=== PATIENT | male | born 2005 | race Caucasian/White ===

== ENCOUNTER 2023-03-18 15:32 | Emergency (ER) | payer MEDICAID, SELFPAY ==
[2023-03-18 15:34] VITALS: BP 164/114; PULSE 120; RESP 18; TEMP 36.1; O2SAT 96; BMI 40.6
--- NOTE | 2023-03-18 15:47 | EX.ED.DYSGE1 ---
HPI History of Present Illness Chief Complaint: General Illness Detail of Chief Complaint: Chest wall pain Informant: patient Onset/Context/Timing Onset: Days (10 days) Narrative Narrative: Patient presents secondary to pain around his left nipple. He states it is been bothering her for the past 10 days and is only sore with palpation or lying on his chest. He is concerned that he may have cancer. He denies family history of cancer. He has not had night sweats or unintended weight loss. There has been no redness or drainage from the area. PFSH PFSH Medical History no medical history no medical history Allergy/AdvReac Type Severity Reaction Status Date / Time No Known Allergies Allergy Verified 03/18/23 15:36 Social History Smoking Status: Current every day smoker tobacco type: e-cigarettes ROS ROS ED Constitutional Constitutional ED: Denies chills or fever(s) Eyes Eyes: Denies change in vision or discharge from eye(s) ENT ENT ED: Denies discharge from eye(s), rhinorrhea or sore throat Cardiovascular Cardiovascular: Reports chest pain; Denies palpitations Respiratory/Chest Respiratory/Chest: Denies cough or dyspnea Gastrointestinal Gastrointestinal: Denies abdominal pain, nausea or vomiting Musculoskeletal Musculoskeletal: Denies back pain or extremity pain Integumentary Denies Abrasions or rash Neurologic Neurologic: Denies headache(s) or weakness Psychiatric Psychiatric: Denies anxiety or depression Allergic/Immunologic Allergic/Immunologic ED: Denies lip swelling or urticaria EXAM Physical Exam Const Vital Signs: 03/18/23 15:34 03/18/23 15:49 Temperature 97 F L Temperature Source Temporal Pulse Rate 120 H Respiratory Rate 18 Respiratory Effort Normal Non-Labored Blood Pressure 164/114 H Blood Pressure Mean 130 Pulse Ox 96 Oxygen Delivery Method Room Air Positive well nourished and well developed General Appearance ED: well developed HEENT Reports normocephalic and head/scalp atraumatic Eyes PERRL and EOMs intact bilaterally Neck supple Chest Wall inspection of chest normal and palpation of chest normal Chest Narrative: No reproducible chest wall pain at this time. No erythema or palpable masses. Resp normal respiratory effort and clear to auscultation bilaterally Cardio regular rate and regular rhythm GI normal to inspection, nondistended, normoactive bowel sounds Palpation: soft Extremity normal to inspection Neuro oriented x3 and no sensory deficits noted Sensorium / Orientation: alert Motor Exam: strength 5/5 throughout Psych mental status grossly normal Skin no rashes or lesions noted MDM MDM MDM Narrative Medical decision making narrative: I discussed with the patient that I am not able to rule out cancer in the emergency room. I am able to perform a chest x-ray which will be obtained to evaluate for any obvious mass or bony abnormality to the area. I advised him that he will need follow-up with a primary care physician for possible ultrasound or mammogram of the area if concern remains. He voices understanding and agreement. Treatment and Re-Evaluation :: 2 view chest x-ray per my interpretation is unremarkable. It is noted that on the lateral view the anterior soft tissue of the chest wall is not included on the image. I do not see any obvious masses on the PA image. Test results are discussed with the patient. I will refer him to Dr. Bayron Mayer, next doc on the no doc list for follow-up and to establish care. Patient states that if the x-ray looks okay he may not follow-up. I did explain to him multiple times that a normal-appearing x-ray does not rule out cancer and I cannot tell him at this time that he does not have cancer. He voices understanding and agreement. He will be discharged home with follow-up instructions. Discharge Plan Triage Chief Complaint: General Illness ED Provider: Stephanie Ott Dx/Rx/DC Orders Clinical Impression: Chest wall pain Instructions: ED Pain, Acute, Uncertain Cause Primary Care Provider: Care Physician,No Primary Referrals: Bayron Mayer MD [Med Staff - [facility]] - 1-2 Weeks Care Physician,No Primary [Primary Care Provider] - Disposition Disposition: Home, Self Care
--- NOTE | 2023-03-18 15:54 | RAD_ITS ---
STUDY: X-RAY CHEST REASON FOR EXAM: Male, 17 years old. Chest wall pain. TECHNIQUE: PA and lateral views of the chest. COMPARISON: None. FINDINGS: The lungs are clear and expanded. There is no demonstrated pleural abnormality. Normal size heart. Normal mediastinum and bipin. Normal visualized pulmonary arteries. Normal visualized aortic arch and descending thoracic aorta. Normal visualized thoracic spine. Normal visualized ribs, clavicles, and shoulders. There is no demonstrated abnormality of the visualized soft tissue structures of the upper abdomen. RAD/Chest PA and Lateral IMPRESSION: No acute cardiopulmonary disease. Electronically Signed: Bernabe Alexandre DO at 16:12 EDT ,
== END 2023-03-18 16:27 | disposition home or self-care (01) ==
PROVIDERS: Emergency Provider Emergency Medicine; Visit Provider Emergency Medicine
DX: R07.89 Other chest pain (principal); F17.290 Nicotine dependence, other tobacco product, uncomplicated
CPT/HCPCS: 71046; 99282

== ENCOUNTER 2023-05-03 20:51 | Emergency (ER) | payer MEDICAID, SELFPAY ==
[2023-05-03 20:53] VITALS: BP 165/90; PULSE 94; RESP 18; TEMP 36.3; O2SAT 94; BMI 46.0
--- NOTE | 2023-05-03 21:11 | EX.ED.DYSGE1 ---
HPI History of Present Illness Chief Complaint: General Illness Informant: patient Onset/Context/Timing Onset: Month(s) Narrative Narrative: Patient presents because his stool has been yellow in color and liquidy for the last month. He states he will occasionally get soreness in his lower abdomen. He has had no vomiting. Significant other states they just found out that he has insurance and they did not want a wait for a doctor's appointment so they came to the emergency room. Patient states he did start taking some vitamin Gummies and probiotics shortly after his symptoms started. He did not notice any change while taking these. He did stop the vitamin Gummies but is still taking the probiotic. PFSH PFSH Medical History no medical history no medical history Allergy/AdvReac Type Severity Reaction Status Date / Time No Known Allergies Allergy Verified 05/03/23 20:56 Social History Smoking Status: Current every day smoker tobacco type: e-cigarettes ROS ROS ED Constitutional Constitutional ED: Denies chills or fever(s) Eyes Eyes: Denies change in vision or discharge from eye(s) ENT ENT ED: Denies discharge from eye(s), rhinorrhea or sore throat Cardiovascular Cardiovascular: Denies chest pain or palpitations Respiratory/Chest Respiratory/Chest: Denies cough or dyspnea Gastrointestinal Gastrointestinal: Reports diarrhea; Denies abdominal pain, nausea or vomiting Genitourinary Genitourinary ED: Denies dysuria Musculoskeletal Musculoskeletal: Denies back pain or extremity pain Integumentary Denies Abrasions or rash Neurologic Neurologic: Denies headache(s) or weakness Psychiatric Psychiatric: Denies anxiety or depression Allergic/Immunologic Allergic/Immunologic ED: Denies lip swelling or urticaria EXAM Physical Exam Const Vital Signs: 05/03/23 20:53 Temperature 97.3 F L Temperature Source Temporal Pulse Rate 94 Respiratory Rate 18 Blood Pressure 165/90 H Blood Pressure Mean 115 Pulse Ox 94 Oxygen Delivery Method Room Air Positive well nourished and well developed General Appearance ED: well developed HEENT Reports normocephalic and head/scalp atraumatic Eyes PERRL and EOMs intact bilaterally Neck supple Chest Wall inspection of chest normal and palpation of chest normal Resp normal respiratory effort and clear to auscultation bilaterally Cardio regular rate and regular rhythm GI normal to inspection, nondistended, normoactive bowel sounds Palpation: soft Extremity normal to inspection Neuro oriented x3 and no sensory deficits noted Sensorium / Orientation: alert Motor Exam: strength 5/5 throughout Psych mental status grossly normal Skin no rashes or lesions noted MDM MDM MDM Narrative Medical decision making narrative: Labwork obtained to evaluate for leukocytosis, anemia, and electrolyte derangement. Stool studies sent. Lab Data Attestation: I reviewed the patient's lab results. Labs: Laboratory Results - last 24 hr 05/03/23 21:20 WBC 7.4 RBC 5.73 Hgb 16.7 H Hct 49.7 MCV 86.7 MCH 29.1 MCHC 33.6 RDW Std Deviation 39.5 RDW Coeff of Jaelyn 12.6 Plt Count 221 MPV 10.6 Immature Gran % (Auto) 0.400 Neut % (Auto) 57.6 Lymph % (Auto) 32.7 [place] % (Auto) 7.5 Eos % (Auto) 1.5 Baso % (Auto) 0.3 Absolute Neuts (auto) 4.3 Absolute Lymphs (auto) 2.43 Nucleated RBC % 0 Sodium 139 Potassium 3.9 Chloride 104 Carbon Dioxide 25.0 Anion Gap 10 BUN 14 Creatinine 0.89 Estim Creat Clear Calc 146.53 Est GFR (MDRD) Af Amer 141 Est GFR (MDRD) Non-Af 116 BUN/Creatinine Ratio 15.8 Glucose 107 H Calcium 9.8 Total Bilirubin 0.70 Direct Bilirubin 0.23 AST 26 ALT 59 Alkaline Phosphatase 80 Total Protein 8.3 H Albumin 4.1 Globulin 4.2 Lipase 15 Treatment and Re-Evaluation :: CBC and chemistry studies are remarkable only for hemoconcentration with a hemoglobin of 16.7. Renal function is normal. LFTs and lipase are normal. Stool has been sent, but we several hours for results. He was advised that if any of his results are positive and he needs treatment he will be called. I encouraged him to check with his insurance company to see what doctors in the area except his insurance. He will be given a pamphlet with the area providers in it. Return instructions given. Discharge Plan Triage Chief Complaint: General Illness ED Provider: Stephanie Ott Dx/Rx/DC Orders Clinical Impression: Diarrhea Instructions: ED Diarrhea, Unknown Cause Primary Care Provider: Care Physician,No Primary Referrals: Care Physician,No Primary [Primary Care Provider] - Activity Restrictions/Additional Instructions: As discussed, please call your insurance company to see who in the area accepts your insurance. You have been given a pamphlet with the area providers and their contact information. Disposition Disposition: Home, Self Care
[2023-05-03 21:26] LABS: Absolute Lymphocyte Count 2.43 X10^3/uL (0.83-4.51); Absolute Neutrophil Count 4.3 X10^3/uL (2.0-7.7); Basophil# 0.02 X10^3/uL; Basophil% 0.3 % (0-1); Eosinophil# 0.11 X10^3/uL; Eosinophils% 1.5 % (0-5); Hematocrit 49.7 % (40-54); Hemoglobin 16.7 g/dL (13.0-16.5); Lymphocyte # 2.43 X10^3/ul (0.83-4.51); Lymphocyte % 32.7 % (19-41); Mean Corp Hgb Conc 33.6 g/dL (32-36); Mean Corpuscular Hgb 29.1 pg (27.0-32.0); Mean Corpuscular Volume 86.7 fL (80-94); Mean Platelet Vol. 10.6 fl (6.2-12.0); Monocyte# 0.56 X10^3/uL; Monocyte% 7.5 % (0-10); NRBC Flagged by Analyzer 0 % (0-5); Neutrophil # 4.29 X10^3/uL (2.7-7.7); Neutrophil % 57.6 % (47-70); Platelet Count 221 K/mm3 (150-450); RBC Distribution Width CV 12.6 % (11.6-14.6); RBC Distribution Width SD 39.5 fl (35.1-43.9); Red Blood Count 5.73 M/mm3 (4.6-6.2); White Blood Count 7.4 K/mm3 (4.4-11.0)
[2023-05-03 21:45] LABS: AST(SGOT) 26 U/L (15-37); Alanine Aminotransfer ALT/SGPT 59 U/L (16-61); Albumin, Serum 4.1 g/dL (3.2-5.0); Alkaline Phosphatase 80 U/L (45-117); Anion Gap 10 (5-15); BUN 14 mg/dL (7-18); BUN/Creat Ratio 15.8 RATIO (10-20); Bilirubin, Direct 0.23 mg/dL (0.00-0.30); Calcium,Total 9.8 mg/dL (8.5-10.1); Chloride 104 mmol/L (98-107); Creatinine, Serum 0.89 mg/dL (0.70-1.30); EST Glomerular Filtration Rate 116 mL/min (>60); Est Glom Filt Rate - Afr Amer 141 mL/min (>60); Estimated Creatinine Clearance 146.53 ml/min; Globulin 4.2 g/dL (2.2-4.2); Glucose 107 mg/dL (74-106); Lipase 15 U/L (13-75); Potassium 3.9 mmol/L (3.5-5.1); Protein, Total 8.3 g/dL (6.4-8.2); Sodium Level 139 mmol/L (136-145)
== END 2023-05-03 22:51 | disposition home or self-care (01) ==
PROVIDERS: Emergency Provider Emergency Medicine; Visit Provider Emergency Medicine
DX: R19.7 Diarrhea, unspecified (principal); F17.290 Nicotine dependence, other tobacco product, uncomplicated
CPT/HCPCS: 83630; 87506; 80048; 80076; 83690; 85025; 99283

== ENCOUNTER 2023-08-21 14:26 | Emergency (ER) | payer MEDICAID, SELFPAY ==
[2023-08-21 14:28] VITALS: BP 165/109; PULSE 119; RESP 18; TEMP 36.6; O2SAT 97; BMI 44.1
[2023-08-21 15:30] LABS: Bedside Glucose 390 mg/dL (74-106)
[2023-08-21] MEDS: 0.9% Normal Saline (1000mL) 1,000 ML 1000 ML IV ×2 (15:31→16:30)
[2023-08-21 15:48] LABS: Absolute Lymphocyte Count 2.75 X10^3/uL (0.83-4.51); Absolute Neutrophil Count 3.7 X10^3/uL (2.0-7.7); Basophil# 0.03 X10^3/uL; Basophil% 0.4 % (0-1); Eosinophil# 0.11 X10^3/uL; Eosinophils% 1.5 % (0-5); Hematocrit 50.8 % (40-54); Lymphocyte # 2.75 X10^3/ul (0.83-4.51); Lymphocyte % 38.7 % (19-41); Mean Corp Hgb Conc 33.5 g/dL (32-36); Mean Corpuscular Hgb 28.2 pg (27.0-32.0); Mean Corpuscular Volume 84.2 fL (80-94); Mean Platelet Vol. 11.2 fl (6.2-12.0); Monocyte# 0.51 X10^3/uL; Monocyte% 7.2 % (0-10); NRBC Flagged by Analyzer 0 % (0-5); Neutrophil # 3.67 X10^3/uL (2.7-7.7); Neutrophil % 51.6 % (47-70); Platelet Count 214 K/mm3 (150-450); RBC Distribution Width CV 12.4 % (11.6-14.6); RBC Distribution Width SD 37.7 fl (35.1-43.9); Red Blood Count 6.03 M/mm3 (4.6-6.2); White Blood Count 7.1 K/mm3 (4.4-11.0)
[2023-08-21 16:02] LABS: Hemoglobin A1c 11.6 % (3.8-5.6)
[2023-08-21 16:13] LABS: Bacteria 0 SEEN /hpf (None Seen); Mucous, Urine 0 SEEN /hpf (<or=2+); Red Blood Cells-Urine 0 SEEN /hpf (0-5); Squamous Epithelial Cells - UA 0 SEEN /hpf (0-5); White Blood Cells 0 SEEN /hpf (0-5)
[2023-08-21 16:14] LABS: AST(SGOT) 19 U/L (15-37); Alanine Aminotransfer ALT/SGPT 45 U/L (16-61); Albumin, Serum 4.6 g/dL (3.2-5.0); Alkaline Phosphatase 129 U/L (45-117); Anion Gap 8 (5-15); BUN 11 mg/dL (7-18); BUN/Creat Ratio 12.2 RATIO (10-20); Bilirubin, Direct 0.17 mg/dL (0.00-0.30); Chloride 99 mmol/L (98-107); EST Glomerular Filtration Rate 114 mL/min (>60); Est Glom Filt Rate - Afr Amer 138 mL/min (>60); Globulin 4.1 g/dL (2.2-4.2); Glucose 373 mg/dL (74-106); Potassium 3.8 mmol/L (3.5-5.1); Protein, Total 8.7 g/dL (6.4-8.2); Sodium Level 134 mmol/L (136-145)
[2023-08-21 16:23] LABS: Color, Urine Yellow (Yellow); Glucose, Dipstick 1000 mg/dl (Normal); Leukocyte Esterase-Dipstick Negative /ul (Negative); Nitrite-Dipstick Negative (Negative); Occult Blood-Urine Negative /ul (Negative); Protein-Dipstick 30 mg/dl (Negative); Urine Bilirubin Dipstick Negative (Negative); Urine Clarity Clear (Clear); Urine Urobilinogen Normal (Normal)
--- NOTE | 2023-08-21 16:46 | EDS_ITS ---
HPI History of Present Illness Chief Complaint: Hyperglycemia Informant: patient and spouse/S.O. Narrative Narrative: 18-year-old male presenting to the emergency room for chief complaint of increased thirst and frequent urination. Patient is worried he may have diabetes. He states that he has progressively had symptoms. He notes some degree of weight loss unintentionally. He states his mouth consistently feels dry. He does not have a primary care doctor. He is a vapor and utilizes cannabis. He has not been consistent with exercise. There is a familial history of diabetes. [facility] Medical History High glucose Home Medications metformin 500 mg tablet 500 mg PO BID #60 tabs 08/21/23 [Rx Last Taken Unknown] Allergy/AdvReac Type Severity Reaction Status Date / Time No Known Allergies Allergy Verified 08/21/23 14:28 Social History Smoking Status: Former smoker ROS ROS ED Constitutional Constitutional ED: Reports weight loss; Denies chills or fever(s) Eyes Eyes: Denies change in vision or diplopia ENT ENT ED: Reports other Details: Dry mouth ; Denies ear pain, rhinorrhea or sore throat Cardiovascular Cardiovascular: Denies chest pain, orthopnea, palpitations or racing heartbeat Respiratory/Chest Respiratory/Chest: Denies cough, dyspnea or orthopnea Gastrointestinal Gastrointestinal: Denies abdominal pain, diarrhea, nausea or vomiting Genitourinary Genitourinary ED: Reports urinary frequency; Denies dysuria or hematuria Musculoskeletal Musculoskeletal: Denies arthralgias or myalgias Integumentary Denies abscess or rash Neurologic Neurologic: Denies headache(s) or weakness Psychiatric Psychiatric: Denies anxiety, depression, suicidal ideation or suicidal thoughts Endocrine Endocrinology: Reports polydipsia and polyuria Allergic/Immunologic Allergic/Immunologic ED: Denies mouth swelling, tongue swelling or urticaria EXAM Physical Exam Const Vital Signs: 08/21/23 14:28 08/21/23 15:16 Temperature 98 F Temperature Source Temporal Pulse Rate 119 H Respiratory Rate 18 Respiratory Effort Normal Non-Labored Respiratory Pattern Normal Blood Pressure 165/109 H Blood Pressure Mean 127 Pulse Ox 97 Oxygen Delivery Method Room Air Positive well nourished, well developed and obese General Appearance ED: well developed Nutritional Appearance: obese HEENT Reports normocephalic, head/scalp atraumatic and dry mucous membranes Mouth ED: Yes dry mucous membranes Mouth: dry mucous membranes Eyes PERRL and EOMs intact bilaterally Neck no lymphadenopathy, supple and no JVD Resp normal respiratory effort and clear to auscultation bilaterally Cardio regular rate and regular rhythm Rate: tachycardic GI normal to inspection, nondistended, normoactive bowel sounds and non-tender Palpation: soft Back/Spine no CVA tenderness and normal ROM Extremity normal to inspection General Extremety ED: Negative for edema General Extremity: Negative for edema Neuro oriented x3 and CN's II-XII intact bilaterally Sensorium / Orientation: alert Motor Exam: strength 5/5 throughout Psych mental status grossly normal Mood & Affect: Negative for depressed or tearful Skin no rashes or lesions noted and no wounds MDM MDM MDM Narrative Medical decision making narrative: Patient received 2 L of normal saline. Hemoglobin elevated at 17 which is most probably multifactorial from some degree of hemoconcentration as well as smoking history. Anion gap is 8 with a CO2 level of 27. Blood glucose 373. Hemoglobin A1c is 11.6. I will pates elevated 129. Serum ketones are negative. I spoke with the patient regarding follow-up long-term management and the fact that this is the start of trying to get his diabetes under control. I am going to give him endocrinology's phone number. He is also going to actively find a primary care doctor and begin engaging in routine exercise. He is going to quit smoking. I will start him on metformin 500 mg twice a day. He understands that this will need to be adjusted and/or another or different medication needed. At this point I do not feel the patient requires hospitalization. History & Record Review Discussion w/independent historian: Patient and Significant other Lab Data Attestation: I reviewed the patient's lab results. Labs: Laboratory Results - last 24 hr 08/21/23 08/21/23 15:12 15:30 WBC 7.1 RBC 6.03 Hgb 17.0 H Hct 50.8 MCV 84.2 MCH 28.2 MCHC 33.5 RDW Std Deviation 37.7 RDW Coeff of Jaelyn 12.4 Plt Count 214 MPV 11.2 Immature Gran % (Auto) 0.600 Neut % (Auto) 51.6 Lymph % (Auto) 38.7 [place] % (Auto) 7.2 Eos % (Auto) 1.5 Baso % (Auto) 0.4 Absolute Neuts (auto) 3.7 Absolute Lymphs (auto) 2.75 Nucleated RBC % 0 Sodium 134 L Potassium 3.8 Chloride 99 Carbon Dioxide 27.0 Anion Gap 8 BUN 11 Creatinine 0.90 Estim Creat Clear Calc 143.70 Est GFR (MDRD) Af Amer 138 Est GFR (MDRD) Non-Af 114 BUN/Creatinine Ratio 12.2 Glucose 373 H Hemoglobin A1c 11.6 H Calcium 10.0 Total Bilirubin 0.50 Direct Bilirubin 0.17 AST 19 ALT 45 Alkaline Phosphatase 129 H Total Protein 8.7 H Albumin 4.6 Globulin 4.1 Acetone Level NEGATIVE POC Glucose 390 H Discharge Plan Triage Chief Complaint: Hyperglycemia ED Provider: Marcello Live Dx/Rx/DC Orders Clinical Impression: Acute dehydration, Diabetes mellitus Instructions: Managing Type 2 Diabetes, Type 2 Diabetes Prescriptions: New metformin 500 mg tablet 500 mg PO BID Qty: 60 0RF Primary Care Provider: Care Physician,No Primary Referrals: Diallo Simmons MD [Med Staff - [facility]] - As soon as possible Care Physician,No Primary [Primary Care Provider] - Disposition Disposition: Home, Self Care
[2023-08-21 16:49] LABS: Ketone-Dipstick 150 mg/dl (Negative)
[2023-08-21 17:55] LABS: Bedside Glucose 325 mg/dL (74-106)
== END 2023-08-21 17:41 | disposition home or self-care (01) ==
PROVIDERS: Emergency Provider Emergency Medicine; Visit Provider Emergency Medicine
DX: E11.65 Type 2 diabetes mellitus with hyperglycemia (principal); E86.0 Dehydration; F17.290 Nicotine dependence, other tobacco product, uncomplicated
CPT/HCPCS: 80048; 80076; 81001; 82009; 82962; 83036; 85025; 96360; 96361; 99284; J7030

== ENCOUNTER 2023-09-21 11:42 | Emergency (ER) | payer MEDICAID, SELFPAY ==
[2023-09-21 11:43] VITALS: BP 184/109; PULSE 95; RESP 16; TEMP 36; O2SAT 98
--- NOTE | 2023-09-21 12:25 | EX.ED.DYSGE1 ---
HPI History of Present Illness Chief Complaint: Med Refill Informant: patient Narrative Narrative: 18-year-old male presenting to the emergency department requesting refill on metformin. The patient was seen at the end of last month with urinary frequency was diagnosed with Diabetes. He was started on metformin twice a day. He states he is down to 1 pill left. His urinary frequency and thirst have improved. States he called for follow-up was told he needed to get a primary care referral. He states he has a new doctor appointment at the beginning of October with Dr. Browne. No fevers. He denies any diarrhea.. He states he has changed his diet. [facility] Medical History (Updated 09/21/23 @ 12:[address] Marcello Live DO) Diabetes mellitus type 2 in obese Home Medications metformin 500 mg tablet 500 mg PO BID #60 tabs 08/21/23 [Rx Last Taken Unknown] Allergy/AdvReac Type Severity Reaction Status Date / Time No Known Allergies Allergy Verified 08/21/23 14:28 Social History Smoking Status: Former smoker ROS ROS ED Constitutional Constitutional ED: Denies chills or weight loss Eyes Eyes: Denies change in vision or diplopia ENT ENT ED: Denies ear pain, rhinorrhea or sore throat Cardiovascular Cardiovascular: Denies chest pain, orthopnea, palpitations or racing heartbeat Respiratory/Chest Respiratory/Chest: Denies cough, dyspnea or orthopnea Gastrointestinal Gastrointestinal: Denies abdominal pain, diarrhea, nausea or vomiting Genitourinary Genitourinary ED: Denies dysuria, hematuria or urinary frequency Musculoskeletal Musculoskeletal: Denies arthralgias or myalgias Integumentary Denies abscess or rash Neurologic Neurologic: Denies headache(s) or weakness Psychiatric Psychiatric: Denies anxiety, depression, suicidal ideation or suicidal thoughts Endocrine Endocrinology: Denies polydipsia, polyphagia or polyuria Allergic/Immunologic Allergic/Immunologic ED: Denies mouth swelling, tongue swelling or urticaria EXAM Physical Exam Const Vital Signs: 09/21/23 11:43 09/21/23 12:39 Temperature 96.8 F L Temperature Source Temporal Pulse Rate 95 Respiratory Rate 16 Respiratory Effort Normal Non-Labored Blood Pressure 184/109 H Blood Pressure Mean 134 Pulse Ox 98 Oxygen Delivery Method Room Air Positive well nourished, well developed and obese General Appearance ED: well developed Nutritional Appearance: obese HEENT Reports normocephalic, head/scalp atraumatic and moist mucous membranes Eyes PERRL and EOMs intact bilaterally Neck no lymphadenopathy, supple and no JVD Resp normal respiratory effort and clear to auscultation bilaterally Cardio regular rate, regular rhythm and no murmurs GI normal to inspection, nondistended, normoactive bowel sounds and non-tender Palpation: soft Back/Spine no CVA tenderness and normal ROM Extremity normal to inspection General Extremety ED: Negative for edema General Extremity: Negative for edema Neuro oriented x3 and CN's II-XII intact bilaterally Sensorium / Orientation: alert Motor Exam: strength 5/5 throughout Psych mental status grossly normal Mood & Affect: Negative for depressed or tearful Skin no rashes or lesions noted and no wounds MDM MDM MDM Narrative Medical decision making narrative: Accu-Chek was obtained. This was 107. I do not think we need to adjust his metformin at this time. I will refill his metformin. He is to keep his primary care appointment. Continued healthy dietary choices. Patient given encouragement. Lab Data Labs: Laboratory Results - last 24 hr 09/21/23 12:37 POC Glucose 108 H Discharge Plan Triage Chief Complaint: Med Refill ED Provider: Marcello Live Dx/Rx/DC Orders Clinical Impression: Diabetes mellitus type 2 in obese, Medication refill Instructions: ED Diabetes- Overview, ED Diet: Diabetes, Type 2 Diabetes Prescriptions: No Action metformin 500 mg tablet 500 mg PO BID Qty: 60 0RF Primary Care Provider: Alonzo Browne Referrals: Alonzo Browne MD [Primary Care Provider] - Keep [place] appointment
[2023-09-21 12:55] LABS: Bedside Glucose 108 mg/dL (74-106)
== END 2023-09-21 13:03 | disposition home or self-care (01) ==
PROVIDERS: Emergency Provider Emergency Medicine; PCP Family Medicine; Visit Provider Emergency Medicine
DX: E11.9 Type 2 diabetes mellitus without complications (principal); Z76.0 Encounter for issue of repeat prescription; E66.9 Obesity, unspecified; Z79.84 Long term (current) use of oral hypoglycemic drugs; Z87.891 Personal history of nicotine dependence
CPT/HCPCS: 82962; 99282

== ENCOUNTER 2023-11-11 06:01 | Emergency (ER) | payer MEDICAID, SELFPAY ==
[2023-11-11 06:03] VITALS: BP 166/105; PULSE 104; RESP 20; TEMP 37.3; O2SAT 98; BMI 47.9
[2023-11-11 06:08] VITALS: BP 166/105; PULSE 109; RESP 20; TEMP 37.3; O2SAT 98
--- NOTE | 2023-11-11 06:19 | RAD_ITS ---
INDICATION: cp EXAMINATION/TECHNIQUE: X-RAY - XR Chest 1 View COMPARISON: 03/18/2023. FINDINGS: LINES/DEVICES: None. LUNGS: No consolidation or evidence of an effusion. No evidence of edema or a pneumothorax. MEDIASTINUM AND CARDIOVASCULAR STRUCTURES: Cardiac silhouette is normal in size and contour. Mediastinum is unremarkable. BONES AND SOFT TISSUES: No acute abnormality. RAD/Chest 1 View (Portable) IMPRESSION: No evidence of cardiopulmonary disease. Electronically Signed: Alozno Salvador DO at 7:47 EST ,
--- NOTE | 2023-11-11 06:19 | EKG12_ITS ---
Test Reason : CP Blood Pressure : / mmHG Vent. Rate : 109 BPM Atrial Rate : 109 BPM P-R Int : 116 ms QRS Dur : 092 ms QT Int : 336 ms P-R-T Axes : 058 001 010 degrees QTc Int : 452 ms Sinus tachycardia Minimal voltage criteria for LVH, may be normal variant ( R in aVL ) Borderline ECG Confirmed by Jovany Alfonso ([id number]), supervising film or videotape editor MELANY CAMP ([id number]) on 11/13/2023 9:22:21 AM Referred By: SELENA Confirmed By:Jovany Alfonso
--- NOTE | 2023-11-11 06:20 | EDS_ITS ---
HPI History of Present Illness Chief Complaint: Chest Pain Informant: patient Onset/Context/Timing Onset: Month(s) Timing: Intermittent Quality: Positive for Pressure and Sharp Narrative Narrative: Patient presents secondary to chest pain. He states has been having intermittent chest pain for the past couple of months. He was having difficulty sleeping tonight because of pain so he presented for evaluation. He describes tonight's pain as sharp pain just to the right of the mediastinum. He states he will occasionally have pain to the lower ribs bilaterally. He does not feel short of breath. He denies recent cough or congestion. [facility] Medical History Diabetes mellitus type 2 in obese Home Medications metformin 500 mg tablet 500 mg PO BID #60 tabs 08/21/23 [Rx Last Taken Unknown] metformin 500 mg tablet 500 mg PO BID #60 tabs 09/21/23 [Rx Last Taken Unknown] Allergy/AdvReac Type Severity Reaction Status Date / Time No Known Allergies Allergy Verified 08/21/23 14:28 Social History Smoking Status: Former smoker ROS ROS ED Constitutional Constitutional ED: Denies chills or fever(s) Eyes Eyes: Denies discharge from eye(s) ENT ENT ED: Denies discharge from eye(s), rhinorrhea or sore throat Cardiovascular Cardiovascular: Reports chest pain; Denies palpitations Respiratory/Chest Respiratory/Chest: Denies cough or dyspnea Gastrointestinal Gastrointestinal: Denies abdominal pain, nausea or vomiting Musculoskeletal Musculoskeletal: Denies back pain or extremity pain Integumentary Denies Abrasions or rash Neurologic Neurologic: Denies headache(s) or weakness Psychiatric Psychiatric: Denies anxiety or depression Allergic/Immunologic Allergic/Immunologic ED: Denies lip swelling or urticaria EXAM Physical Exam Const Vital Signs: 11/11/23 06:03 11/11/23 06:06 11/11/23 06:08 Temperature 99.2 F H 99.2 F H Temperature Source Oral Oral Pulse Rate 104 H 109 H Respiratory Rate 20 H 20 H Respiratory Effort Normal Non-Labored Blood Pressure 166/105 H 166/105 H Blood Pressure Mean 125 125 Pulse Ox 98 98 Oxygen Delivery Method Room Air Room Air 11/11/23 06:55 Temperature Temperature Source Pulse Rate 103 H Respiratory Rate 20 H Respiratory Effort Blood Pressure 143/73 H Blood Pressure Mean 96 Pulse Ox 98 Oxygen Delivery Method Room Air Positive well nourished and well developed General Appearance ED: well developed HEENT Reports moist mucous membranes Eyes EOMs intact bilaterally Chest Wall inspection of chest normal and palpation of chest normal Resp normal respiratory effort and clear to auscultation bilaterally Cardio regular rate and regular rhythm GI soft to palpation and non-tender Extremity normal to inspection Neuro oriented x3 and no sensory deficits noted Sensorium / Orientation: awake and alert Motor Exam: strength 5/5 throughout Psych mental status grossly normal Skin no rashes or lesions noted MDM MDM MDM Narrative Medical decision making narrative: Patient placed on color television console monitor. IV line initiated. EKG obtained to evaluate for cardiac arrhythmia/ischemia. Chest x-ray obtained to evaluate for acute lung pathology, cardiac size, or mediastinal abnormality. Labwork obtained to evaluate for leukocytosis, anemia, and electrolyte derangement. History & Record Review Discussion w/independent historian: Patient Additional record(s) reviewed:: Prior ED visit and Prior labs Lab Data Attestation: I reviewed the patient's lab results. Labs: Laboratory Results - last 24 hr 11/11/23 06:32 WBC 7.4 RBC 5.65 Hgb 15.9 Hct 48.5 MCV 85.8 MCH 28.1 MCHC 32.8 RDW Std Deviation 39.5 RDW Coeff of Jaelyn 12.8 Plt Count 238 MPV 10.7 Immature Gran % (Auto) 0.400 Neut % (Auto) 55.6 Lymph % (Auto) 35.5 Roane % (Auto) 6.8 Eos % (Auto) 1.4 Baso % (Auto) 0.3 Absolute Neuts (auto) 4.1 Absolute Lymphs (auto) 2.62 Nucleated RBC % 0 D-Dimer Quant (PE/DVT) < 0.27 L Sodium 140 Potassium 4.1 Chloride 107 Carbon Dioxide 28.0 Anion Gap 5 BUN 15 Creatinine 0.86 Estim Creat Clear Calc 202.56 Est GFR (MDRD) Af Amer 146 Est GFR (MDRD) Non-Af 121 BUN/Creatinine Ratio 17.5 Glucose 141 H Calcium 9.3 Troponin I High Sens 4 Radiography Chest X-Ray - ED: 1 View, Read by ED Physician, Normal, Heart, Lungs and Mediastinum EKG Initial EKG: Attestation: I personally reviewed and interpreted this EKG as follows: Interpretation: Sinus Tachycardia (Sinus tachycardia at 109. No acute ischemia.) Treatment and Re-Evaluation :: CBC was normal white count 7.4 with hemoglobin of 15.9. Differential unremarkable. Chemistry studies unremarkable with normal renal function. Glucose is 141. Troponin is normal at 4 and D-dimer is less than 0.27. EKG is sinus tachycardia with no evidence of acute ischemia. Portable chest x-ray per my interpretation reveals no evidence of infiltrate or pneumothorax. Patient is reassured with this finding. We did discuss his smoking and he is going to try to cut back. He will follow-up with his primary care physician and return instructions are given. Discharge Plan Triage Chief Complaint: Chest Pain ED Provider: Stephanie Ott Dx/Rx/DC Orders Clinical Impression: Atypical chest pain Instructions: ED Chest Pain, Noncardiac Prescriptions: No Action metformin 500 mg tablet 500 mg PO BID Qty: 60 0RF metformin 500 mg tablet 500 mg PO BID Qty: 60 0RF Primary Care Provider: Stephany Herrera Referrals: Stephany Herrera MD [Primary Care Provider] - 1-2 Weeks Disposition Disposition: Home, Self Care
[2023-11-11 06:41] LABS: Absolute Lymphocyte Count 2.62 X10^3/uL (0.83-4.51); Absolute Neutrophil Count 4.1 X10^3/uL (2.0-7.7); Basophil# 0.02 X10^3/uL; Basophil% 0.3 % (0-1); Eosinophils% 1.4 % (0-5); Hematocrit 48.5 % (40-54); Hemoglobin 15.9 g/dL (13.0-16.5); Lymphocyte # 2.62 X10^3/ul (0.83-4.51); Lymphocyte % 35.5 % (19-41); Mean Corp Hgb Conc 32.8 g/dL (32-36); Mean Corpuscular Hgb 28.1 pg (27.0-32.0); Mean Corpuscular Volume 85.8 fL (80-94); Mean Platelet Vol. 10.7 fl (6.2-12.0); Monocyte% 6.8 % (0-10); NRBC Flagged by Analyzer 0 % (0-5); Neutrophil # 4.11 X10^3/uL (2.7-7.7); Neutrophil % 55.6 % (47-70); Platelet Count 238 K/mm3 (150-450); RBC Distribution Width CV 12.8 % (11.6-14.6); RBC Distribution Width SD 39.5 fl (35.1-43.9); Red Blood Count 5.65 M/mm3 (4.6-6.2); White Blood Count 7.4 K/mm3 (4.4-11.0)
[2023-11-11 06:55] VITALS: BP 143/73; PULSE 103; RESP 20; O2SAT 98
--- OUTSIDE RECORDS SUMMARY | 2023-11-11 06:55 | XMS RPT_ITS | CCD ---
Author Name Unknown Address [facility] [place] [address] Organization [facility] Care Team Providers Care [employer] Clerk Name Role Phone KyleDaveMelany Unavailable Mr. Rick Levi Attending MAYELIN Trujillo Attending Unavail ANA Mcgee Attending Unavailable ANA GROVE Primary Care Unavailable Medications Current Medications Medication Drug Class(es) Dates Sig (Normalized) Sig (Original) cephalexin 500 mg oral tablet (1 source) Cephalosporin Antibacterial Start: 09-02-2022 End: 09-06-2022 take 1 tablet by mouth four times daily cephalexin 500 mg oral tablet ; 1 tab(s) orally 4 times a day Quantity: 20 Refills: 0 Ordered: 02-Sep-2022 JingtreyDaveMelany Start: 02-Sep-2022 End: 06-Sep-2022 Generic Substitution Allowed Comments: Finish all this medication unless otherwise directed by prescriber. Problems Active Problems Problem Classification Problem Date Documented Da te Episodic/Chronic Diabetes mellitus without complication (1 source) Type 2 diabetes mellitus without complications; Translations: [Type 2 diabetes mellitus without complication, without long-term current use of insulin (HCC)] Onset: 4 Chronic Immunizations and screening for infectious disease (2 sources) Encounter for screening for human immunodeficiency virus [HIV]; Translations: [Encounter for screening for other viral diseases] Onset: 4 Episodic Nonmalignant breast conditions (2 sources) Mastodynia; Translations: [Mastodynia] Onset: 3 Episodic Other gastrointestinal disorders (2 sources) Umbilical bleeding; Translations: [Other symptoms involving abdomen and pelvis] 09-02-2022 Episodic Other screening for suspected conditions (not mental disorders or infectious disease) (2 sources) Encounter for screening for lipoid disorders; Translations: [Encounter for screening for other suspected endocrine disorder] Onset: Episodic Past or Other Problems Problem Classification Problem Date Documented Da te Episodic/Chronic Abdominal pain (4 sources) Abdominal pain; Translations: [Periumbilical pain] Onset: 09-02-2022 09-02-2022 Episodic Results Test Name Value Interpretation Reference Range Facil ity Vital Signs Date Time Vital Sign Value Performing Clinician Pema viveros 09-02-2022 09:50-0500 Heart rate 102 /min Melany Gutbrod Other Phone: [facility] 09-02-2022 09:50-0500 Respiratory rate 17 /min Melany Gutbrod Other Phone: [facility] 09-02-2022 09:50-0500 SaO2% (BldA) [Mass fraction] 98 % Melany Gutbrod Other Phone: [facility] 09-02-2022 08:31-0500 Body height 182.8 cm Melany Gutbrod Other Phone: [facility] 09-02-2022 08:31-0500 Body weight 118 kg Melany Gutbrod Other Phone: [facility] 09-02-2022 08:31-0500 Diastolic blood pressure 111 mm[Hg] Melany Gutbrod Other Phone: [facility] 09-02-2022 08:31-0500 Systolic blood pressure 158 mm[Hg] Melany Gutbrod Other Phone: [facility] Encounters Encounter Date Encounter Type Care Provider Facility Start: 10-30-2023 End: 10-30-2023 ambulatory ANA GROVE Facility:[facility] Start: 03-13-2023 End: 03-13-2023 Emergency department patient visit Mr. Rick Levi Facility:[id number] Start: 09-02-2022 End: 09-02-2022 Emergency department patient visit Melany Wright [facility] 02 Payers Date Payer Category Payer Medicaid [id number] 2003 Unknown [id number] 2003 Unknown [id number] Unknown See Registration System\SELF PAY Social History Date Type Detail Facility [facility] Tobacco smoking consumption unknown [facility] Progress note 10-30-2023 Note Date & Type Note Facility 10-30-2023 Note HNO ID: [id number] Author: ANA GROVE APRN.CLAIMS COLLECTOR Service: ? Author Type: Nurse Practitioner Type: Progress Notes Filed: 10/30/2023 15:57 Note Text: This note was created using iconDialter. Subjective Glory Priest is a 18 year old male here today to establish care. He reports going to [facility] in August and reports his sugar was 340. They started him on metformin 500 mg Reports having A1C and thinks it was around >10. DM: newly dx 08/22/2023 in ER. He went due to excess thirst and urination. His BS was noted to be 340. He was started on metformin 500 mg. He admits to drinking lots of sugary drinks and eating whatever he wanted. He reports he changed his diet and went back to ER for rx refills. He reports his sugar at that time was 106. He is planning on joining gym and exercising. He wants to control this without antibiotics Max weight 340 lbs 07/23. Current weight 329 lbs. Preventative: he stopped smoking tobacco 2 wks ago. He smokes marijuana every other day. He does not drink alcohol ALLERGIES Not on File Current Outpatient Medications Medication Sig Dispense Refill metFORMIN (GLUCOPHAGE) 500 mg tablet Take 500 mg by mouth two times a day with meals. No current facility-administered medications for this visit. There is no problem list on file for this patient. No past medical history on file. No past surgical history on file. No family history on file. . Review of Systems Constitutional: Negative for activity change, appetite change, chills, diaphoresis, fatigue, fever and unexpected weight change. HENT: Negative for congestion and dental problem. Eyes: Negative for visual disturbance. Respiratory: Negative for cough, choking, chest tightness, shortness of breath and wheezing. Cardiovascular: Negative for chest pain, palpitations and leg swelling. Gastrointestinal: Negative for abdominal pain, constipation and diarrhea. Endocrine: Negative for cold intolerance, heat intolerance, polydipsia, polyphagia and polyuria. Genitourinary: Negative for difficulty urinating, dysuria, penile discharge, penile pain, scrotal swelling and testicular pain. Musculoskeletal: Negative for arthralgias and back pain. Skin: Negative for color change and rash. Allergic/Immunologic: Negative for food allergies. Neurological: Negative for dizziness, tremors, weakness, light-headedness, numbness and headaches. Hematological: Negative for adenopathy. Does not bruise/bleed easily. Psychiatric/Behavioral: Negative for dysphoric mood and sleep disturbance. The patient is not nervous/anxious. Objective 10/30/23 1424 10/30/23 1511 BP: 148/92 138/86 BP Site: Right Arm BP Position: Sitting BP Cuff Size: Large Adult Pulse: 110 Resp: 18 Temp: 36.6 ?C (97.8 ?F) TempSrc: Oral SpO2: 97% Weight: (!) 149.2 kg (329 lb) Height: 177.8 cm (5' 10 ) Physical Exam Vitals and nursing note reviewed. Constitutional: General: He is not in acute distress. Appearance: He is obese. He is not ill-appearing. HENT: Head: Normocephalic and atraumatic. Cardiovascular: Rate and Rhythm: Normal rate and regular rhythm. Pulses: Normal pulses. Radial pulses are 2+ on the right side and 2+ on the left side. Heart sounds: Normal heart sounds, S1 normal and S2 normal. No murmur heard. Pulmonary: Effort: Pulmonary effort is normal. No respiratory distress. Breath sounds: Normal breath sounds. No wheezing or rhonchi. Abdominal: General: Bowel sounds are normal. Palpations: Abdomen is soft. Skin: General: Skin is warm and dry. Neurological: Mental Status: He is alert and oriented to person, place, and time. Psychiatric: Attention and Perception: Attention and perception normal. Mood and Affect: Mood normal. Speech: Speech normal. Behavior: Behavior normal. Behavior is cooperative. Thought Content: Thought content normal. Cognition and Memory: Cognition and memory normal. Judgment: Judgment normal. ASSESSMENT/PLAN: 1. Type 2 diabetes mellitus without complication, without long-term current use of insulin (HCC) - ICD9: 250.00, ICD10: E11.9 (primary diagnosis) - New diagnosis - Continue current medications - Counseled on healthy diet and regular exercise - Discussed need for and benefit of weight loss. BMI 47.21 kg/(m2) - Discussed diabetic education issues of diabetes complications and monitoring required, hypoglycemic/hyperglycemic symptoms, medication-specific side effects and monitoring, and diabetic sick day rules - CBC - COMP METABOLIC PANEL - ALBUMIN/CREAT RATIO RND UR - HGB A1C - BLOOD SUGAR DIAGNOSTIC STRIPS - LANCETS - BLOOD-GLUCOSE METER - METFORMIN 500 MG TABLET - CONSULT TO DIABETES EDUCATION DSME/MNT 2. Screening for HIV (human immunodeficiency virus) - ICD9: V73.89, ICD10: Z11.4 - HIV 1 2 COMBO(AG/AB),WITH REFLEX TO DIFFERENTIATION 3. Encounter for hepatitis C screening test for low risk patient - ICD9: V73.89, I (more content not included)... [facility] Summary Purpose Family History No Family History Records FoundNo Family History Records Found Advance Directives No Advanced Directives Records FoundNo Advanced Directives Records Found Additional Source Comments <item> Privacy Markings (unrecogniz ed section and content) Section Author: Purnima Almeida PROHIBITION ON REDISCLOSURE OF CONFIDENTIAL INFORMATION This notice accompanies a disclosure of information concerning a client made to you with the consent of such client. (unrecognized sect ion and content) No Status Records FoundNo Status Records Found INFORMATION SOURCE (unrecogn ized section and content) DATE CREATED AUTHOR AUTHOR'S ORGANIZ ATION 10/31/2023 [facility] FOR RECORDS PERTAINING TO PATIENTS WHO ARE OR HAVE BEEN ENROLLED IN A CHEMICAL DEPENDENCY/SUBSTANCEABUSE PROGRAM, SOME INFORMATION MAY BE OMITTED. This clinical summary was aggregated from multiple sources. Caution should be exercised in using it in the provision of clinical care. This summary normalizes information from multiple sources, and as a consequence, information in this document may materially change the coding, format and clinical context of patient data. In addition, data may be omitted in some cases. CLINICAL DECISIONS SHOULD BE BASED ON THE PRIMARY CLINICAL RECORDS. [facility]. provides no warranty or guarantee of the accuracy or completeness of information in this document.
[2023-11-11 06:59] LABS: Anion Gap 5 (5-15); BUN 15 mg/dL (7-18); BUN/Creat Ratio 17.5 RATIO (10-20); Calcium,Total 9.3 mg/dL (8.5-10.1); Chloride 107 mmol/L (98-107); Creatinine, Serum 0.86 mg/dL (0.70-1.30); EST Glomerular Filtration Rate 121 mL/min (>60); Est Glom Filt Rate - Afr Amer 146 mL/min (>60); Estimated Creatinine Clearance 202.56 ml/min; Glucose 141 mg/dL (74-106); Potassium 4.1 mmol/L (3.5-5.1); Sodium Level 140 mmol/L (136-145); Troponin-I HS 4 pg/mL (3.0-78.0)
[2023-11-11 07:13] LABS: D-Dimer Quantitative (DVT/PE) < 0.27 FEU/ug/m (0.27-0.49)
[2023-11-11 07:26] VITALS: BP 157/86; PULSE 109; RESP 18; O2SAT 97
== END 2023-11-11 07:35 | disposition home or self-care (01) ==
PROVIDERS: Emergency Provider Emergency Medicine; PCP Obstetrics & Gynecology; Visit Provider Emergency Medicine
DX: R07.89 Other chest pain (principal); E11.9 Type 2 diabetes mellitus without complications; Z87.891 Personal history of nicotine dependence; Z79.84 Long term (current) use of oral hypoglycemic drugs
CPT/HCPCS: 71045; 80048; 84484; 85025; 85379; 93005; 99284; A4216

== ENCOUNTER 2024-02-05 07:31 | Emergency (ER) | payer MEDICAID, SELFPAY ==
[2024-02-05 07:31] VITALS: BP 159/101; PULSE 111; RESP 22; TEMP 37.2; O2SAT 97; BMI 46.2
[2024-02-05 07:34] VITALS: BP 161/104; PULSE 113; RESP 21; TEMP 37.2; O2SAT 98
--- NOTE | 2024-02-05 07:41 | EX.ED.VIS.UR ---
HPI HPI - URI History of Present Illness Chief Complaint: Sore Throat Detail of Chief Complaint: Sore throat and throat or swollen uvula. Informant: patient and spouse/S.O. Onset/Context/Timing Onset: Today Context: Gradual Onset Timing: Continuous Current Severity: Mild Maximum Severity: Mild Associated Symptoms Associated Symptoms: Negative for Nasal Congestion, Headache, Sinus Pressure, Myalgias, Nausea, Vomiting, Diarrhea, Shortness of Breath, Chest Pain, Nonproductive cough, Hemoptysis or Productive Cough Narrative Narrative: 18-year-old male history of ajl-evomngi-hprpdmnne diabetes. On metformin. States that today he woke up with sore throat with a swollen uvula. No prior history. Denies fever. Denies other complaints. No recent illness. Prior similar symptoms: No Recent Illness/Hospitalization: No ROS ROS ED ROS Narrative Sore throat. Review of Systems ROS Unobtainable: Denies due to encephalopathy Constitutional Constitutional ED: Denies chills or fever(s) Eyes Eyes: Denies blurry vision ENT ENT ED: Denies ear pain Cardiovascular Cardiovascular: Denies chest pain or palpitations Respiratory/Chest Respiratory/Chest: Denies cough, dyspnea or dyspnea on exertion Gastrointestinal Gastrointestinal: Denies abdominal pain, diarrhea, nausea or vomiting Genitourinary Genitourinary ED: Denies dysuria or hematuria Musculoskeletal Musculoskeletal: Denies arthralgias or back pain Integumentary Denies abscess or Abrasions Neurologic Neurologic: Denies headache(s) Psychiatric Psychiatric: Denies anxiety or depression Endocrine Endocrinology: Denies cold intolerance Hematologic/Lymphatic Hematologic/Lymphatic: Denies easy bleeding, easy bruising or lymphadenopathy Allergic/Immunologic Allergic/Immunologic ED: Reports other Details: Swelling of his uvula. ; Denies mouth swelling, tongue swelling or urticaria [facility] Medical History Diabetes mellitus type 2 in obese Home Medications metformin 500 mg tablet 500 mg PO BID #60 tabs 08/21/23 [Rx Last Taken Unknown] metformin 500 mg tablet 500 mg PO BID #60 tabs 09/21/23 [Rx Last Taken Unknown] amoxicillin 500 mg capsule 500 mg PO TID 10 days #30 caps 02/05/24 [Rx Last Taken Unknown] Allergy/AdvReac Type Severity Reaction Status Date / Time No Known Allergies Allergy Verified 02/05/24 07:32 Social History Smoking Status: Current every day smoker tobacco type: e-cigarettes EXAM Physical Exam Narrative Exam Narrative: 18-year-old male vital signs stable afebrile. Does not look septic toxic. No distress. Pulse ox 97% on room air no signs hypoxia. H EENT exam posterior pharynx red. Swollen enlarged uvula. Able to swallow. No airway obstruction or stridor. Tonsils are enlarged and red also. Exudate on the right. No peritonsillar abscess. Moist mucous membranes. No stridor nor drooling. Able to handle his own secretions. Neck nontender. No lymphadenopathy. Trachea midline. Lungs clear to auscultation bilaterally. Heart regular rhythm rate about 110 no murmur. Chest wall and ribs nontender. Abdomen soft nontender. Back nontender. Moving all 4 extremities. Normal strength and range of motion. He is awake and alert. Answer questions following commands. No focal motor deficits. Const Vital Signs: 02/05/24 07:31 02/05/24 07:34 Temperature 99 F 99 F Temperature Source Temporal Temporal Pulse Rate 111 H 113 H Respiratory Rate 22 H 21 H Blood Pressure 159/101 H 161/104 H Blood Pressure Mean 120 123 Pulse Ox 97 98 Oxygen Delivery Method Room Air Room Air Positive well nourished and well developed; Negative for cachectic or contractures General Appearance ED: well developed and NAD; Negative for cachectic, contractures, cyanotic, diaphoretic or pallor Nutritional Appearance: Negative for cachectic HEENT Reports moist mucous membranes; Denies dry mucous membranes HEENT Narrative: Swollen and red uvula. Enlarged and red tonsils with exudate on the right. No peritonsillar abscess. Able to Hanners and secretions. No stridor. No drooling. normocephalic and atraumatic Mouth ED: No dry mucous membranes Mouth: No dry mucous membranes Throat: tonsils abnormal and posterior oropharynx abnormal; Negative for posterior oropharynx normal Eyes PERRL and EOMs intact bilaterally General Eye ED: Negative for pale conjunctiva or scleral icterus Neck no lymphadenopathy, supple, no meningeal signs and no JVD General: Negative for anterior neck swelling or lymphadenopathy Resp normal respiratory effort and clear to auscultation bilaterally Effort and Inspection: Negative for retractions or pain with movement Auscultation: Negative for rales, rhonchi, wheezes or diminished lung sounds Cardio S1 normal heart sound, S2 normal heart sound and no murmurs Rate: tachycardic Rhythm: regular rhythm GI non-tender, non-distended and no masses Auscultation: normoactive bowel sounds Palpation: soft; Negative for tender or guarding Back/Spine no CVA tenderness and normal ROM General Back: Negative for CVA tenderness Cervical Spine: Negative for cervical spine tenderness Thoracic Spine / Upper Back: Negative for thoracic spinal tenderness Lumbar Spine / Lower Back: Negative for lumbar spinal tenderness Sacrum: Negative for tenderness Extremity normal to inspection and full ROM General Extremety ED: Negative for cyanosis or tenderness General Extremity: Negative for cyanosis Neuro oriented x3, CN's II-XII intact bilaterally and no sensory deficits noted Sensorium / Orientation: alert, oriented to person, oriented to place and oriented to time; Negative for orientation impaired, lethargic or stuporous Motor Exam: strength 5/5 throughout; Negative for general weakness or strength abnormal Psych mental status grossly normal Appearance: Negative for other Attitude: No agitated Mood & Affect: Negative for depressed, anxious or tearful Skin General Skin Exam: Negative for jaundice or pallor Lesions: no lesions Rashes: no rashes Trauma: Negative for abrasion or laceration Image ED - URI/Dental Diagram: 1. Swollen and red uvula. Swollen and red tonsils bilaterally. Exudate on the right. No lymphadenopathy. MDM MDM MDM Narrative Medical decision making narrative: 18-year-old male red and swollen uvula and tonsils strep throat versus viral pharyngitis versus allergic reaction. Rapid strep will be obtained. Rapid strep positive and placed on antibiotics. Rapid strep negative and placed on steroids. Repeat exam at 9:05 AM unchanged. We discussed his rapid strep test being positive. Will be placed on amoxicillin 3 times a day for 10 days. Warm salt water gargling. Tylenol Motrin. Follow-up if not improving or return if worse. History & Record Review Discussion w/independent historian: Patient Additional record(s) reviewed:: Prior inpatient record, Prior outpatient record, Prior ED visit and Prior labs Lab Data Attestation: I reviewed the patient's lab results. Lab results narrative: Rapid strep test is positive. Discharge Plan Triage Chief Complaint: Sore Throat ED Provider: Robin Michele Dx/Rx/DC Orders Clinical Impression: Strep throat, History of diabetes mellitus Instructions: ED Pharyngitis, Strep (Confirmed) Prescriptions: New amoxicillin 500 mg capsule 500 mg PO TID 10 Days Qty: 30 0RF No Action metformin 500 mg tablet 500 mg PO BID Qty: 60 0RF metformin 500 mg tablet 500 mg PO BID Qty: 60 0RF Primary Care Provider: Stephany Herrera Referrals: Stephany Herrera MD [Primary Care Provider] - 1 Week if not improving Activity Restrictions/Additional Instructions: You have strep throat. You will be started on the antibiotic amoxicillin 1 pill 3 times a day for 10 days. Warm salt water gargling. Motrin and Tylenol for pain. Watch her blood sugars closely. Follow-up with your doctor if not improving or return if worse. Chloraseptic spray and throat lozenges for the sore throat. Disposition Disposition: Home, Self Care
[2024-02-05] MEDS: AMOXICILLIN 500 MG CAPSULE PO (09:20)
== END 2024-02-05 09:24 | disposition home or self-care (01) ==
PROVIDERS: Emergency Provider Emergency Medicine; PCP Obstetrics & Gynecology; Visit Provider Emergency Medicine
DX: J02.0 Streptococcal pharyngitis (principal); E11.9 Type 2 diabetes mellitus without complications; Z79.84 Long term (current) use of oral hypoglycemic drugs; F17.290 Nicotine dependence, other tobacco product, uncomplicated
CPT/HCPCS: 87651; 99282

== ENCOUNTER 2024-05-14 03:36 | Emergency (ER) | payer MEDICAID, SELFPAY ==
[2024-05-14 03:37] VITALS: BP 159/106; PULSE 120; RESP 20; TEMP 35.9; O2SAT 98
--- NOTE | 2024-05-14 04:06 | EX.ED.DYSGE1 ---
HPI History of Present Illness Chief Complaint: Sore Throat Informant: patient Narrative Narrative: Patient is a 18-year-old male with type II buu-[id number] diabetes. He states that he has had 1 to 2 days of sore throat and he was looking in his throat and noticed black dots. He denies any trouble breathing or swallowing he denies any fevers or chills or trauma but had concern for potential infection secondary to his symptoms and therefore comes in for evaluation [facility] Medical History Diabetes mellitus type 2 in obese Home Medications ?Medication ?Instructions ?Recorded ?Last Taken ?Type metformin 500 mg tablet 500 mg PO BID #60 tabs 08/21/23 Unknown Rx metformin 500 mg tablet 500 mg PO BID #60 tabs 09/21/23 Unknown Rx amoxicillin 500 mg capsule 500 mg PO TID 10 days #30 caps 02/05/24 Unknown Rx azelastine 137 mcg (0.1 %) nasal 2 spray intranasal BID #30 mL 05/14/24 Unknown Rx spray Allergy/AdvReac Type Severity Reaction Status Date / Time cat dander Allergy Mild Other Verified 05/14/24 03:44 Social History Smoking Status: Current every day smoker tobacco type: smokeless tobacco ROS ROS ED Constitutional Constitutional ED: Denies chills or fever(s) ENT ENT ED: Reports sore throat; Denies rhinorrhea Cardiovascular Cardiovascular: Denies chest pain Respiratory/Chest Respiratory/Chest: Denies cough or dyspnea Gastrointestinal Gastrointestinal: Denies abdominal pain, diarrhea, nausea or vomiting Genitourinary Genitourinary ED: Denies dysuria Musculoskeletal Musculoskeletal: Denies neck pain Integumentary Denies rash Neurologic Neurologic: Denies headache(s) Hematologic/Lymphatic Hematologic/Lymphatic: Denies easy bleeding or easy bruising Allergic/Immunologic Allergic/Immunologic ED: Denies mouth swelling or tongue swelling EXAM Physical Exam Const Vital Signs: 05/14/24 03:37 Temperature 96.7 F L Temperature Source Temporal Pulse Rate 120 H Respiratory Rate 20 H Blood Pressure 159/106 H Blood Pressure Mean 123 Pulse Ox 98 Oxygen Delivery Method Room Air Positive well nourished, well developed and obese General Appearance ED: well developed; Negative for pallor Nutritional Appearance: obese HEENT Reports moist mucous membranes HEENT Narrative: There is trace to +1 tonsils hypertrophy bilaterally with multiple tonsillar crypt. No exudates or abscess formation noted. No trismus or change in voice or difficulty with secretions. No hard palate petechiae. Patient does have 2 circular blood-tinged well-circumscribed lesions along the lower cheek bilaterally near the patient's incoming wisdom teeth/molars. These are most consistent with abrasions and pressure formation. Eyes PERRL and EOMs intact bilaterally Neck supple Neck Narrative: No crepitance palpated Resp normal respiratory effort and clear to auscultation bilaterally Cardio regular rhythm Rate: tachycardic GI normal to inspection, nondistended, normoactive bowel sounds, non-tender, non-distended and no masses Auscultation: normoactive bowel sounds Palpation: soft Extremity normal to inspection Neuro oriented x3 and CN's II-XII intact bilaterally Sensorium / Orientation: alert Motor Exam: strength 5/5 throughout Psych Mood & Affect: anxious Skin no rashes or lesions noted General Skin Exam: Negative for jaundice or pallor MDM MDM MDM Narrative Medical decision making narrative: Patient arrived to the ER tachycardic and hypertensive but was also very anxious. Exam shows tonsillar crypts and mucous irritation as well as what appears to be pressure or blood blister formation along the bilateral lower cheeks consistent with rubbing against the teeth/molar. He does not have tongue or lip swelling to suggest anaphylaxis there is no derangement in voice to suggest epiglottitis and he does not have any physical exam findings for strep pharyngitis or peritonsillar abscess. Therefore I felt there is no need for imaging studies but did discuss obtaining a rapid strep swab. However as physical exam does not correlate with strep patient does not want 1 obtained. Also as he does not have posterior lymphadenopathy concern for mononucleosis is low. Patient will follow-up with his family doctor to discuss ENT referral regarding tonsillectomy secondary to his recurrent sore throats but as exam does not suggest peritonsillar abscess retropharyngeal abscess epiglottitis Austyn's angina or ANUG I do not feel there is need for further workup and he is otherwise safe for discharge History & Record Review Discussion w/independent historian: Patient Discharge Plan Triage Chief Complaint: Sore Throat ED Provider: Param Oakes Dx/Rx/DC Orders Clinical Impression: Pharyngitis, Non-insulin dependent diabetes mellitus Instructions: ED Pharyngitis, Viral Prescriptions: New azelastine 137 mcg (0.1 %) spray,non-aerosol 2 spray intranasal BID Qty: 30 0RF Rx Instructions: administer into each nostril No Action metformin 500 mg tablet 500 mg PO BID Qty: 60 0RF metformin 500 mg tablet 500 mg PO BID Qty: 60 0RF amoxicillin 500 mg capsule 500 mg PO TID 10 Days Qty: 30 0RF Primary Care Provider: Stephany Herrera Referrals: Stephany Herrera MD [Primary Care Provider] - Activity Restrictions/Additional Instructions: Your exam indicates that your sore throat is secondary to a virus and mucus drainage. There are no obvious findings of strep throat mono or an abscess. The small lesions along each side of your mouth/throat are most consistent with pressure to the cheek tissue rubbing against your teeth creating a small blood blister or area of discoloration. Follow-up with your family doctor to discuss referral to ENT or a oral maxillofacial surgeon for further evaluation and return to the ER should you have any further concerns Print Language: Turkmen Disposition Disposition: Home, Self Care Discharge Date/Time: 05/14/24 04:12
== END 2024-05-14 04:12 | disposition home or self-care (01) ==
PROVIDERS: Emergency Provider Emergency Medicine; PCP Obstetrics & Gynecology; Visit Provider Emergency Medicine
DX: J02.9 Acute pharyngitis, unspecified (principal); E11.9 Type 2 diabetes mellitus without complications; F17.220 Nicotine dependence, chewing tobacco, uncomplicated; E66.9 Obesity, unspecified; Z79.84 Long term (current) use of oral hypoglycemic drugs
CPT/HCPCS: 99282

== ENCOUNTER 2024-07-18 02:15 | Emergency (ER) | payer MEDICAID, SELFPAY ==
[2024-07-18 02:15] VITALS: BP 187/103; PULSE 115; RESP 16; TEMP 36.8; O2SAT 100; BMI 48.1
--- NOTE | 2024-07-18 02:29 | ED.VIS.LOWEX ---
HPI History of Present Illness HPI Narrative: 19-year-old diabetic male complaining of right great toe discomfort. Says an ingrown nail. He trimmed the nail. But is having discomfort mild swelling. No pus. No red streaks. No fever. Chief Complaint: Lower Extremity Injury Informant: patient Onset/Context/Timing Onset: Today and Yesterday Context: Gradual Onset Timing: Continuous Quality of Pain: Dull and Aching Current Severity: Mild Maximum Severity: Mild Narrative Narrative: 19-year-old diabetic male right great toe ingrown toenail. Prior similar symptoms: No Recent Illness/Hospitalization: No PFSH PFSH Medical History Diabetes mellitus type 2 in obese Home Medications ?Medication ?Instructions ?Recorded ?Last Taken ?Type metformin 500 mg tablet 500 mg PO BID #60 tabs 08/21/23 Unknown Rx metformin 500 mg tablet 500 mg PO BID #60 tabs 09/21/23 Unknown Rx cephalexin 500 mg capsule 500 mg PO TID 7 days #21 caps 07/18/24 Unknown Rx lisinopril 5 mg tablet 5 mg PO DAILY 07/18/24 Unknown History Allergy/AdvReac Type Severity Reaction Status Date / Time cat dander Allergy Mild Other Verified 07/18/24 02:16 Social History Smoking Status: Current every day smoker tobacco type: smokeless tobacco ROS ROS ED ROS Narrative Denies recent illness. Constitutional Constitutional ED: Denies fever(s) Eyes Eyes: Denies blurry vision ENT ENT ED: Denies ear pain Cardiovascular Cardiovascular: Denies chest pain Respiratory/Chest Respiratory/Chest: Denies cough Gastrointestinal Gastrointestinal: Denies abdominal pain Genitourinary Genitourinary ED: Denies dysuria Musculoskeletal Musculoskeletal: Denies arthralgias Integumentary Denies abscess Neurologic Neurologic: Denies headache(s) Psychiatric Psychiatric: Denies anxiety Endocrine Endocrinology: Denies polydipsia Hematologic/Lymphatic Hematologic/Lymphatic: Denies easy bleeding Allergic/Immunologic Allergic/Immunologic ED: Denies mouth swelling EXAM Physical Exam Narrative Exam Narrative: 19-year-old male no acute distress vital signs stable afebrile. H EENT exam unremarkable. Neck nontender. Lungs are clear. Heart regular rhythm no murmur rate 105. Abdomen soft. Moving all 4 extremities. His right great toenail is ingrown medially. Neurovascularly intact. No pus. No cellulitis. No lymphangitic streaking. The toes minimally swollen medial side. He is awake and alert. No focal motor deficits. Const Vital Signs: 07/18/24 02:15 Temperature 98.2 F Temperature Source Oral Pulse Rate 115 H Respiratory Rate 16 Blood Pressure 187/103 H Blood Pressure Mean 131 Pulse Ox 100 Oxygen Delivery Method Room Air Positive well nourished and well developed; Negative for cachectic, contractures or unkempt General Appearance ED: well developed and NAD; Negative for unkempt, cachectic or contractures Nutritional Appearance: Negative for cachectic HEENT Reports moist mucous membranes normocephalic and atraumatic; Negative for trauma or tenderness Eyes PERRL General Eye ED: Negative for other Neck full ROM and supple Thyroid: Negative for tender Chest Wall inspection of chest normal and palpation of chest normal Resp normal respiratory effort, no retractions and clear to auscultation bilaterally Cardio regular rhythm, S1 normal heart sound, S2 normal heart sound and no murmurs; Negative for regular rate Rate: tachycardic GI non-tender, non-distended and no masses Palpation: soft; Negative for tender or guarding Back/Spine no CVA tenderness General Back: Negative for CVA tenderness Cervical Spine: Negative for cervical spine tenderness Thoracic Spine / Upper Back: Negative for thoracic spinal tenderness Extremity normal to inspection and full ROM Extremity Narrative: Except right ingrown toenail medially. Neuro oriented x3, CN's II-XII intact bilaterally and no sensory deficits noted Sensorium / Orientation: alert, oriented to person, oriented to place and oriented to time; Negative for orientation impaired or confused Motor Exam: strength 5/5 throughout Psych mental status grossly normal Appearance: Negative for unkempt Skin no wounds Lesions: no lesions Rashes: no rashes MDM MDM MDM Narrative Medical decision making narrative: 19-year-old diabetic male with right ingrown toenail. He and I discussed treatment options. Digital block and I will resect the medial quarter of the nail. I do not think needs any antibiotics at this time. Patient doing well after I removed the medial quarter of his nail. He tolerated well. We discussed wound care. I did blame a prescription for Keflex only if it starts looking infected currently it looks well and he does not need the antibiotic at this time. I also discussed with him checking his blood sugars at least twice daily. History & Record Review Discussion w/independent historian: Patient Procedures Other Procedures Procedure(s): Right great toe ingrown toenail. Cleaned the toe using Shur-Clens and alcohol swabs. Digital block using lidocaine. Once proper anesthetic was obtained. Undermined the medial quarter of the nail and removed it. Patient tolerated well. Will be cleaned and dressed. He was instructed on wound care and instructions. Discharge Plan Triage Chief Complaint: Lower Extremity Injury ED Provider: Robin Michele Dx/Rx/DC Orders Clinical Impression: Ingrowing toenail, History of diabetes mellitus Instructions: ED Ingrown Toenail, Excised Prescriptions: New cephalexin 500 mg capsule 500 mg PO TID 7 Days Qty: 21 0RF No Action metformin 500 mg tablet 500 mg PO BID Qty: 60 0RF metformin 500 mg tablet 500 mg PO BID Qty: 60 0RF lisinopril 5 mg tablet 5 mg PO DAILY Primary Care Provider: Stephany Herrera Referrals: Stephany Herrera MD [Primary Care Provider] - Alonzo Wood DPM [Med Staff - Active Staff] - As Needed Activity Restrictions/Additional Instructions: Tylenol and/or Motrin for pain. This should progressively improve. Follow-up with the ceramic tiler if it looks worse or return. I would check your blood sugars at least once or twice daily. Print Language: Italian Disposition Disposition: Home, Self Care
[2024-07-18] MEDS: Lidocaine 1% (20 ml mdv) 20 ML Vial 10 ML INFILT (02:31)
[2024-07-18 03:12] VITALS: BP 159/99; PULSE 110; RESP 18; TEMP 36.6; O2SAT 99
== END 2024-07-18 03:13 | disposition home or self-care (01) ==
PROVIDERS: Emergency Provider Emergency Medicine; PCP Obstetrics & Gynecology; Visit Provider Emergency Medicine
DX: L60.0 Ingrowing nail (principal); E11.9 Type 2 diabetes mellitus without complications; Z79.84 Long term (current) use of oral hypoglycemic drugs; F17.220 Nicotine dependence, chewing tobacco, uncomplicated
CPT/HCPCS: 11730; 99283

== ENCOUNTER 2025-01-05 07:28 | Emergency (ER) | payer MEDICAID, SELFPAY ==
[2025-01-05 07:28] VITALS: BP 184/119; PULSE 118; RESP 18; TEMP 36.7; O2SAT 99; BMI 47.7
--- NOTE | 2025-01-05 07:41 | ED.VIS.CHEST ---
HPI History of Present Illness Chief Complaint: Chest Pain Informant: patient Onset/Context/Timing Onset: Weeks Activity at onset: gradual Timing: Intermittent Quality: Positive for Dull Location: Substernal, Left Chest and - (Left scapula and left arm) Worsened By: - (Smoking marijuana) Relieved By: Nothing Associated Symptoms: Positive for Acid Reflux; Negative for Nausea, Vomiting, Diaphoresis, Dyspnea, Cough, Fever, Lightheadedness or Palpitations Narrative Narrative: Patient presents with chest pain that has been intermittent for a long time. Patient describes his pain as dull. Patient states his pain is mainly over the left chest and in the substernal area. Patient states it radiates into his left scapular area and occasionally radiates into his left arm. Patient states it is worse with smoking marijuana. Patient states nothing seems to help with it. Patient denies any nausea or vomiting. Patient denies any shortness of breath or cough. Patient denies any diaphoresis. Patient denies any recent travel or recent surgery. Patient denies any history of DVT or PE. CVD Risk Factors: Positive for Hypertension and Diabetes; Negative for Hypercholesterolemia, Family History 1' </=55 or Smoking PE Risk Factors: Negative for Recent Travel/Surgery, Recent Immobilization, Prior DVT or PE, Cancer or OCP + Smoking + >/=35 [facility] Medical History (Updated 01/05/25 @ 09:[address] Bayron Cadena, ) Hypertension Diabetes mellitus type 2 in obese Home Medications ?Medication ?Instructions ?Recorded ?Last Taken ?Type metformin 500 mg tablet 500 mg PO BID #60 tabs 08/21/23 Unknown Rx metformin 500 mg tablet 500 mg PO BID #60 tabs 09/21/23 Unknown Rx cephalexin 500 mg capsule 500 mg PO TID 7 days #21 caps 07/18/24 Unknown Rx lisinopril 5 mg tablet 5 mg PO DAILY 07/18/24 Unknown History Allergy/AdvReac Type Severity Reaction Status Date / Time cat dander Allergy Mild Other Verified 01/05/25 07:28 Surgical History no surgical history no surgical history Social History (Updated 01/05/25 @ 07:[address] Bayron Cadena, ) Smoking Status: Current every day smoker tobacco type: smokeless tobacco substance use type: marijuana ROS ROS ED Constitutional Constitutional ED: Denies chills or fever(s) Eyes Eyes: Denies blurry vision or change in vision ENT ENT ED: Denies rhinorrhea or sore throat Cardiovascular Cardiovascular: Reports chest pain; Denies palpitations Respiratory/Chest Respiratory/Chest: Denies cough or dyspnea Gastrointestinal Gastrointestinal: Denies nausea or vomiting Genitourinary Genitourinary ED: Denies dysuria or hematuria Musculoskeletal Musculoskeletal: Reports back pain; Denies neck pain Integumentary Denies abscess or rash Neurologic Neurologic: Denies headache(s) or weakness Allergic/Immunologic Allergic/Immunologic ED: Denies mouth swelling or urticaria EXAM Physical Exam Const Vital Signs: 01/05/25 07:28 01/05/25 07:57 01/05/25 09:23 Temperature 98.0 F Temperature Source Oral Pulse Rate 118 H 112 H Respiratory Rate 18 17 Blood Pressure 184/119 H 141/112 H Blood Pressure Mean 140 121 Pulse Ox 99 99 Oxygen Delivery Method Room Air Room Air Room Air Positive well nourished and well developed Constitutional Narrative: BMI is 47.7 General Appearance ED: well developed and NAD HEENT Reports moist mucous membranes Neck supple and no JVD Chest Wall palpation of chest normal Resp normal respiratory effort and clear to auscultation bilaterally Cardio regular rhythm Rate: tachycardic GI soft to palpation, non-tender and non-distended Extremity normal to inspection General Extremety ED: Negative for edema or tenderness General Extremity: Negative for edema Neuro oriented x3, CN's II-XII intact bilaterally and no sensory deficits noted Sensorium / Orientation: awake and alert Motor Exam: strength 5/5 throughout Psych mental status grossly normal Heart Score History: Slightly/Non-Suspicious ECG: Normal Age: </= 45 years Risk Factors: 1 or 2 Risk Factors Troponin: </= Normal Limit Score: 1 MDM MDM MDM Narrative Medical decision making narrative: Musculoskeletal pain, electrolyte abnormality, cardiac dysrhythmia, cardiac ischemia, pulmonary embolism, hypertensive urgency, hypertensive emergency, and anxiety. EKG will be obtained to assess for cardiac dysrhythmia and cardiac ischemia. Chest x-ray will be obtained to assess for pneumonia and pneumothorax. CBC will be obtained to assess for leukocytosis. Basic metabolic profile will be obtained to assess for electrolyte abnormality and renal function. D-dimer will be obtained to assess for pulmonary embolism. High-sensitivity troponin will be obtained to assess for cardiac ischemia. 2-hour repeat high-sensitivity troponin will be obtained to assess for ongoing cardiac ischemia. Lab Data Attestation: I reviewed the patient's lab results. Lab results narrative: CBC was reviewed and was within normal limits. Basic metabolic profile was reviewed and showed a slightly elevated glucose of 134. The remainder is within normal limits. Initial high-sensitivity troponin was reviewed and was normal at 9. D-dimer was reviewed and was normal at 0.27. 2-hour repeat high-sensitivity troponin was reviewed and was normal at 10. Labs: Laboratory Results - last 24 hr 01/05/25 01/05/25 08:08 10:00 WBC 10.0 RBC 5.65 Hgb 15.9 Hct 47.5 MCV 84.1 MCH 28.1 MCHC 33.5 RDW Std Deviation 40.4 RDW Coeff of Jaelyn 13.2 Plt Count 241 MPV 10.8 Immature Gran % (Auto) 0.500 Neut % (Auto) 60.0 Lymph % (Auto) 31.7 [place] % (Auto) 6.4 Eos % (Auto) 1.2 Baso % (Auto) 0.2 Absolute Neuts (auto) 6.0 Absolute Lymphs (auto) 3.18 Nucleated RBC % 0 D-Dimer Quant (PE/DVT) 0.27 Sodium 136 Potassium 3.8 Chloride 99 Carbon Dioxide 21.6 Anion Gap 15 BUN 9 Creatinine 0.83 Estim Creat Clear Calc 213.53 Est GFR (MDRD) Non-Af 128 BUN/Creatinine Ratio 11.0 Glucose 134 H Calcium 9.8 Troponin T High Sens 9 Troponin T Hi Sens 2 Hr 10 Radiography Chest X-Ray - ED: 2 View, Read by ED Physician, Read by Radiologist and No Acute Disease Diagnostic Testing: Clinical Impression(s) from Imaging Studies Chest X-Ray 01/05/25 07:57 IMPRESSION: No acute cardiopulmonary process. Reading Location: [facility] and lateral chest x-ray was obtained. There are 2 views. On my independent interpretation, lung gonzalez are clear. There is normal cardiac silhouette. Bony thorax is normal. There is no acute process noted. Radiologist also interpreted the x-ray and agrees. EKG Initial EKG: Attestation: I personally reviewed and interpreted this EKG as follows: Interpretation: No Acute Injury Pattern and Sinus Tachycardia (123) Comments: EKG was obtained. On my independent interpretation, it showed a sinus tachycardia with a rate of 123. ME interval, QRS interval, and QTc intervals were all normal. [place] was normal. There are no acute ST or T wave changes. Prior EKG tracings: available for review Prior: Unchanged (11/11/2023) Treatment and Re-Evaluation :: Patient was given aspirin. Patient states he has been out of his blood pressure medicine for several days. Patient was given a dose of lisinopril here. Patient's blood pressure improved to 141/112. Patient is feeling better on reevaluation. Patient was advised of his findings. Patient has a HEART score of 1. Patient was advised that he is low risk for acute cardiac event. Patient was instructed to follow-up with his primary care physician in 5 to 7 days. Marijuana cessation was discussed. Patient understood and was agreeable with the plan. All questions were answered. Discharge Plan Triage Chief Complaint: Chest Pain ED Provider: Bayron Cadena Dx/Rx/DC Orders Clinical Impression: Chest pain of unknown etiology, Hypertension Instructions: ED Chest Pain, Uncertain Cause, ED Hypertension, Established Prescriptions: No Action metformin 500 mg tablet 500 mg PO BID Qty: 60 0RF metformin 500 mg tablet 500 mg PO BID Qty: 60 0RF lisinopril 5 mg tablet 5 mg PO DAILY cephalexin 500 mg capsule 500 mg PO TID 7 Days Qty: 21 0RF Stand Alone Forms: Work / School Excuse Primary Care Provider: Stephany Herrera Referrals: Stephany Herrera MD [Primary Care Provider] - 5-7 Days Print Language: Maltese Disposition Disposition: Home, Self Care
--- NOTE | 2025-01-05 07:57 | RAD_ITS ---
EXAM: XR Chest, 2 Views CLINICAL INDICATION: CHEST PAIN TECHNIQUE: Frontal and lateral views of the chest. COMPARISON: No relevant prior studies available. FINDINGS: LUNGS AND PLEURAL SPACES: Unremarkable. No consolidation. No pneumothorax. HEART: Unremarkable. No cardiomegaly. MEDIASTINUM: Unremarkable. Normal mediastinal contour. BONES/JOINTS: Unremarkable. No acute fracture. RAD/Chest PA and Lateral IMPRESSION: No acute cardiopulmonary process. Reading Location: [facility]
--- NOTE | 2025-01-05 07:57 | EKG12_ITS ---
Test Reason : CP Blood Pressure : */* mmHG Vent. Rate : 123 BPM Atrial Rate : 123 BPM P-R Int : 132 ms QRS Dur : 92 ms QT Int : 314 ms P-R-T Axes : 68 19 17 degrees QTcB Int : 449 ms Sinus tachycardia Otherwise normal ECG Confirmed by FRANDY HERNANDEZ, KRYSTAL ([id number]), slot editor MELANY CAMP ([id number]) on 01/06/2025 8:09:25 AM Referred By: Confirmed By: KRYSTAL WISE MD
[2025-01-05] MEDS: Aspirin 81 MG TAB.CHEW 324 MG PO (08:07)
[2025-01-05 08:16] LABS: Absolute Lymphocyte Count 3.18 X10^3/uL (0.83-4.51); Basophil# 0.02 X10^3/uL; Basophil% 0.2 % (0-1); Eosinophil# 0.12 X10^3/uL; Eosinophils% 1.2 % (0-5); Hematocrit 47.5 % (40-54); Hemoglobin 15.9 g/dL (13.0-16.5); Lymphocyte # 3.18 X10^3/ul (0.83-4.51); Lymphocyte % 31.7 % (19-41); Mean Corp Hgb Conc 33.5 g/dL (32-36); Mean Corpuscular Hgb 28.1 pg (27.0-32.0); Mean Corpuscular Volume 84.1 fL (80-94); Mean Platelet Vol. 10.8 fl (6.2-12.0); Monocyte# 0.64 X10^3/uL; Monocyte% 6.4 % (0-10); NRBC Flagged by Analyzer 0 % (0-5); Neutrophil # 6.01 X10^3/uL (2.7-7.7); Platelet Count 241 K/mm3 (150-450); RBC Distribution Width CV 13.2 % (11.6-14.6); RBC Distribution Width SD 40.4 fl (35.1-43.9); Red Blood Count 5.65 M/mm3 (4.6-6.2)
[2025-01-05] MEDS: Lisinopril 5 MG Tablet PO (08:22)
[2025-01-05 08:42] LABS: Anion Gap 15 (5-15); BUN 9 mg/dL (4-19); Calcium,Total 9.8 mg/dL (7.6-11.0); Carbon Dioxide 21.6 mmol/L (21.0-32.0); Chloride 99 mmol/L (98-108); Creatinine, Serum 0.83 mg/dL (0.70-1.20); EST Glomerular Filtration Rate 128 (>60); Estimated Creatinine Clearance 213.53 ml/min (50-250); Glucose 134 mg/dL (70-99); Potassium 3.8 mmol/L (3.3-5.1); Sodium Level 136 mmol/L (133-145); Troponin T High Sensitivity 9 ng/L (<=22)
[2025-01-05 09:23] VITALS: BP 141/112; PULSE 112; RESP 17; O2SAT 99
[2025-01-05 09:35] LABS: D-Dimer Quantitative (DVT/PE) 0.27 FEU/ug/m (0.27-0.49)
[2025-01-05 10:39] LABS: Troponin T High Sens 2 HR 10 ng/L (<=22)
[2025-01-05 10:49] VITALS: BP 141/112; PULSE 112; RESP 17; TEMP 36.7; O2SAT 99
== END 2025-01-05 10:52 | disposition home or self-care (01) ==
PROVIDERS: Emergency Provider Emergency Medicine; PCP Obstetrics & Gynecology; Visit Provider Emergency Medicine
DX: R07.9 Chest pain, unspecified (principal); E11.9 Type 2 diabetes mellitus without complications; I10 Essential (primary) hypertension; F17.220 Nicotine dependence, chewing tobacco, uncomplicated; Z79.84 Long term (current) use of oral hypoglycemic drugs; Z79.899 Other long term (current) drug therapy
CPT/HCPCS: 71046; 80048; 84484; 85025; 85379; 93005; 99283; A4216